=== PATIENT | female | born 1965 | race Caucasian/White ===

== ENCOUNTER → 2023-10-07 16:27 | Outpatient (REF) | payer OTHER, SELFPAY | LOC: RAD 16:27 | PROVIDERS: ATTENDING PHYSICIAN Registered Nurse | DX: M25.541 Pain in joints of right hand (principal); M25.542 Pain in joints of left hand | CPT/HCPCS: 73120 ==

== ENCOUNTER 2024-04-01 06:25 | Day surgery (SDC) | payer OTHER, SELFPAY ==
[2024-04-01 13:41] VITALS: BMI 28.3
[2024-04-01 13:42] VITALS: BP 148/81
[2024-04-01 16:05] VITALS: BP 96/76
[2024-04-01 16:16] VITALS: BP 114/69
[2024-04-01 16:30] VITALS: BP 111/73
[2024-04-01 16:45] VITALS: BP 106/70
[2024-04-01] MEDS: MOTRIN 600 MG PO (16:58)
[2024-04-01 17:00] VITALS: BP 109/67
== END 2024-04-01 17:30 | disposition home or self-care (01) ==
LOC: SDS 06:25
PROVIDERS: ATTENDING PHYSICIAN Podiatrist Foot & Ankle Surgery
DX: M20.42 Other hammer toe(s) (acquired), left foot (principal); M19.072 Primary osteoarthritis, left ankle and foot
CPT/HCPCS: 28285; 88304; 88311

== ENCOUNTER → 2024-05-17 09:53 | Outpatient (REF) | payer OTHER, SELFPAY | LOC: WDC 09:53 | PROVIDERS: ATTENDING PHYSICIAN Obstetrics & Gynecology Gynecology; FAMILY PHYSICIAN Registered Nurse | DX: Z12.31 Encounter for screening mammogram for malignant neoplasm of breast (principal) | CPT/HCPCS: 77063; 77067 ==

== ENCOUNTER → 2025-04-17 17:17 | Outpatient (REF) | payer BC, SELFPAY | LOC: WDC 17:17 | PROVIDERS: ATTENDING PHYSICIAN Obstetrics & Gynecology Gynecology; FAMILY PHYSICIAN Registered Nurse | DX: Z12.31 Encounter for screening mammogram for malignant neoplasm of breast (principal) | CPT/HCPCS: 77063; 77067 ==

== ENCOUNTER → 2025-04-25 07:36 | Outpatient (REF) | payer BC, SELFPAY | LOC: RAD 07:36 | PROVIDERS: ATTENDING PHYSICIAN Internal Medicine Gastroenterology; FAMILY PHYSICIAN Registered Nurse | DX: R09.A2 Foreign body sensation, throat (principal) | CPT/HCPCS: 74221 ==

== ENCOUNTER 2025-05-05 06:16 | Day surgery (SDC) | payer BC, SELFPAY | END 2025-05-05 10:19 | disposition home or self-care (01) | LOC: GI 06:16 | PROVIDERS: ATTENDING PHYSICIAN Internal Medicine Gastroenterology | DX: R13.10 Dysphagia, unspecified (principal); K31.89 Other diseases of stomach and duodenum; K29.50 Unspecified chronic gastritis without bleeding | CPT/HCPCS: 43239; 88305; 88342 ==